=== PATIENT | male | born 1990 | race Native Hawaiian/Other Pacific Islander ===

== ENCOUNTER 2020-03-04 18:02 | Emergency (ER) | payer OTHER ==
[~2020-03-04] VITALS: Ht 180.3 cm; Wt 77.1 kg
[2020-03-04 18:02] VITALS: TEMP 101.2
[2020-03-04 18:58] LABS: PLATELET COUNT 201 K/uL (142-355)
[2020-03-04 19:03] LABS: SODIUM 145 mmol/L (136-145)
[2020-03-04 20:30] VITALS: BP 148/90
== END 2020-03-04 20:30 ==
LOC: ED 18:02
PROVIDERS: Family Medicine
PROC: 0T9B70Z Drainage of Bladder with Drainage Device, Via Natural or Artificial Opening (ICD-10-PCS; principal; 2020-03-04)
DX: F45.0 Somatization disorder (principal); Z76.5 Malingerer [conscious simulation]
CPT/HCPCS: 36415; 51702; 80053; 80307; 80320; 81000; 82550; 82553; 82962; 83605; 84484; 85027; 93005; 96360; 96365; 96375; 99284; J0132; J2310

== ENCOUNTER 2021-08-07 14:05 | Emergency (ER) | payer OTHER ==
[~2021-08-07] VITALS: Ht 182.9 cm; Wt 77.1 kg
[2021-08-07 14:05] VITALS: TEMP 98.4
[2021-08-07 14:35] LABS: PLATELET COUNT 212 K/uL (142-355)
[2021-08-07 14:48] LABS: POTASSIUM 3.5 mmol/L (3.6-5.2)
[2021-08-07 15:21] VITALS: BP 132/90
== END 2021-08-07 15:35 ==
LOC: ED 14:08
PROVIDERS: Emergency Medicine
DX: K21.9 Gastro-esophageal reflux disease without esophagitis (principal); R10.13 Epigastric pain; R00.0 Tachycardia, unspecified; F41.8 Other specified anxiety disorders
CPT/HCPCS: 80053; 84484; 85027; 85379; 93005; 96374; 99284; J3490